=== PATIENT | male | born 1955 | race Caucasian/White ===

== ENCOUNTER 2022-12-27 11:12 | Outpatient (REF) | payer MEDICARE, MEDICAID, SELFPAY ==
[2022-12-27 11:31] LABS: INR 2.45; Prothrombin Time 24.7 sec (9.0-11.6)
== END 2022-12-27 11:13 | disposition home or self-care (01) ==
LOC: LAB 11:12
DX: Z79.01 Long term (current) use of anticoagulants (principal); Z79.2 Long term (current) use of antibiotics
CPT/HCPCS: 36415; 85610